=== PATIENT | male | born 1955 | race Caucasian/White ===

== ENCOUNTER 2016-04-17 14:06 | Inpatient (IN) | payer OTHER ==
[~2016-04-17] VITALS: Ht 182.9 cm; Wt 76.4 kg
[2016-04-18] MEDS ORDERED: TRAM50TA PO (09:12)
[2016-04-18] MEDS ORDERED: MULT1TAB85 PO (09:12)
[2016-04-18] MEDS ORDERED: MELO-1 PO (09:12)
[2016-05-05] MEDS ORDERED: METOPROLOL TARTRATE 25 MG TAB PO PRN ×2 (05:45→06:45)
[2016-05-05] MEDS ORDERED: INSULIN HUMAN REGULAR 1,000 UNITS/10 ML VIAL SQ PRN ×2 (05:45→06:45)
[2016-05-05 05:47] VITALS: BP 145/80; PULSE 86; RESP 20; TEMP 98.4; O2SAT 100
[2016-05-05] MEDS ORDERED: SODIUM CHLOR 0.9% 250 ML INJ 250 ML ONE (05:54)
[2016-05-05] MEDS ORDERED: DEXAMETHASONE SOD PHOS 20 MG/5 ML VIAL ONE (05:58)
[2016-05-05] MEDS: POVIDONE IODINE 7.5% SCRUB 118 ML BOTTLE TOP SCH ×2 (06:00→23:37)
[2016-05-05] MEDS: CHLORHEXIDINE GLUCONATE 4% SOLN 120 ML BTL TOP SCH ×2 (06:00→23:37)
[2016-05-05] MEDS ORDERED: VANCOMYCIN 1000 MG/NS 250 ML (for <70 kg) IV SCH ×2 (06:00)
[2016-05-05] MEDS ORDERED: DEXAMETHASONE SOD PHOS 20 MG/5 ML VIAL IV SCH (06:00)
[2016-05-05] MEDS ORDERED: ceFAZolin 2 GM PREMIX 50 ML IV SCH (06:00)
[2016-05-05] MEDS ORDERED: FAMOTIDINE 20 MG/2 ML VIAL ONE (06:39)
[2016-05-05] MEDS ORDERED: fentaNYL CITRATE 250 MCG/5 ML AMP ONE ×2 (06:40→09:14)
[2016-05-05] MEDS ORDERED: MIDAZOLAM HCL 2 MG/2 ML VIAL ONE (06:40)
[2016-05-05] MEDS: SODIUM CHLORID 0.9% 500 ML IV SCH ×2 (06:45→19:57)
[2016-05-05] MEDS: LACTATED RINGER'S 1000 ML IV SCH ×2 (06:45→23:37)
[2016-05-05] MEDS: EXPAREL PERI-ARTICULAR INJECTION (TOTAL VOL. 60 ML) P-ARTICULR SCH ×4 (07:00→07:47)
[2016-05-05] MEDS ORDERED: SODIUM CHLORID 0.9% 500 ML IV SCH (07:00)
[2016-05-05] MEDS ORDERED: LACTATED RINGER'S 1000 ML IV SCH (07:00)
[2016-05-05] MEDS: TRANEXAMIC PERI-ARTICULAR 3,000 MG/NS 100 ML P-ARTICULR SCH ×4 (07:00→07:48)
[2016-05-05] MEDS: TRANEXAMIC ACID INJ 1,146 MG in SODIUM CHLORIDE 0.9% INJ 100 ML IV SCH ×2 (07:00→07:47)
[2016-05-05] MEDS ORDERED: HYDR-3288 PO (07:08)
[2016-05-05] MEDS ORDERED: ENOX40P SQ (07:09)
[2016-05-05] MEDS ORDERED: BISACODYL 10 MG SUPP PR PRN (07:15)
[2016-05-05] MEDS ORDERED: ALUMINUM/MAGNESIUM/SIMETH 30 ML CUP PO PRN (07:15)
[2016-05-05] MEDS ORDERED: MORPHINE SULFATE 4 MG/ML INJ IV PUSH PRN (07:15)
[2016-05-05] MEDS ORDERED: MAGNESIUM HYDROXIDE SUSP 30 ML CUP PO PRN (07:15)
[2016-05-05] MEDS ORDERED: diphenhydrAMINE HCL 50 MG/ML VIAL IV PRN (07:15)
[2016-05-05] MEDS ORDERED: SODIUM CHLORIDE 0.9% FLUSH 5 ML FLUSH IVF PRN (07:15)
[2016-05-05] MEDS ORDERED: ZOLPIDEM TARTRATE 5 MG TAB PO PRN (07:15)
[2016-05-05] MEDS ORDERED: ACETAMINOPHEN/HYDROcodone 325 MG/7.5 MG TAB PO PRN (07:15)
[2016-05-05] MEDS ORDERED: NALOXONE HCL 0.4 MG/ML AMP IV PRN (07:15)
[2016-05-05] MEDS ORDERED: ONDANSETRON HCL 4 MG/2 ML VIAL IVP PRN (07:15)
[2016-05-05] MEDS ORDERED: Post-op Orders (for Pharmacy) MISC XX ONE (07:15)
[2016-05-05] MEDS ORDERED: GENTAMICIN SULFATE 80 MG/2 ML VIAL IRRIGATION ONE (07:46)
[2016-05-05] MEDS: SODIUM CHLORIDE 0.9% FLUSH 5 ML FLUSH IVF SCH ×2 (09:00→20:00)
--- NOTE | 2016-05-05 09:13 | MP ---
cc: ELOY SEQUEIRA M.D. DATE OF SURGERY 04/10/2016 PREOPERATIVE DIAGNOSES Left hip osteoarthritis. Left hip osteonecrosis. POSTOPERATIVE DIAGNOSES Left hip osteoarthritis. Left hip osteonecrosis. PROCEDURE Left total hip arthroplasty. SURGEON Eloy Sequeira MD QUALITY CONTROL TECHNICIAN Eloy Ortiz PA-C ANESTHESIA General. ESTIMATED BLOOD LOSS 200 cc. COMPLICATIONS None. IMPLANTS USED DePuy Corail size 5 Press-Fit standard offset femoral stem, size 54 solid [place] Gription cup, size 36-mm neutral highly cross-linked polyethylene liner, size 36-mm ceramic head, size +1.5 neck. JUSTIFICATION This patient is a 60-year-old male with a history of severe pain involving the left hip. He has severe, disabling pain with standing, walking, ambulation, weightbearing activities, even severe pain at rest; it does interfere with activities of daily living. He has failed greater than three months of nonoperative conservative treatment to include medications, therapy, injections, ambulatory assistive aids, home exercise program, activity modification as well. The patient is not overweight. X-rays of the left hip reveal severe end-stage osteoarthritis with associated osteonecrosis. There is evidence of bone on bone joint space narrowing, subchondral stenosis, subchondral cysts, osteophyte formation and subluxation. The patient was counseled as to the risks, benefits and alternatives to a total hip arthroplasty. The risks discussed include but are not limited to anesthesia, bleeding, infection, damage to nerves, blood vessels, pain, stiffness, leg length discrepancy, fracture dislocation, blood clots, pulmonary embolism and even . The patient's pain is severe. He favored the benefits over the risks and did wish to proceed with surgery. PROCEDURE IN DETAIL Written consent was obtained. The patient was identified by name and taken to the operating room, placed supine on the operating room table. General anesthesia was administered as well as 2 grams of IV Ancef and 1 gram of IV vancomycin. With the patient on the [place] table, the left and right feet were placed in the padded traction boots. All bony prominences and pressure points were well padded. The left hip and left lower extremity were prepped and draped using isopropyl alcohol, Hibiclens solution and Chloraprep solution. After an appropriate time-out was performed, a longitudinal incision was made over the anterolateral aspect of the left hip. Dissection was carried over tensor fascia catalino, beneath the rectus femoris to allow exposure of the anterior hip capsule. A capsulotomy incision was performed. An oscillating saw was used to perform a femoral neck cut. The osteoarthritic femoral head and neck component was removed. A 10-blade scalpel was used to excise the labrum. Sequential reaming began at size 47-mm, was carried through size 54 mm. Subsequently a solid [place] Gription size 54 cup was impacted in approximately 10 degrees of 10 degrees of anteversion and 45 degrees of abduction. This gave purchase and fixation. After insertion of the cup, a screw hole eliminator was placed followed by the neutral liner. The liner was impacted in place and tested for stability. Attention was turned to the femur where the leg was externally rotated, extended to the ground and adducted. The capsule was released off the inner surface of the greater trochanter to allow for elevation and lateralization of the femur. A box-cutting osteotome was used to gain entrance into the intramedullary canal of the femur. This was followed by canal finder and sequential broaching up to size 12. Trial head and neck combinations were evaluated and the final components implanted with the 1.5 neck, 36-mm head. The leg could be reduced with appropriate soft tissue tension. The leg could be externally rotated and extended all the way down to the ground without evidence of anterior instability or impingement. No evidence of dislocation. Fluoroscopic imaging showed appropriate implantation of components. The surgical wound was thoroughly irrigated with sterile saline solution. The fascial layer was closed with #1 Vicryl suture, the subcutaneous layer with 2-0 Vicryl suture. The skin was closed with Dermabond. Sterile dressings were applied. The patient tolerated the procedure well with no intraoperative complications noted. John Paul Ortiz, physician assistant men's soccer coach certified, was present during the procedure to include patient positioning and the procedure itself. The medical necessity of a physician assistant men's soccer coach was indicated in this case due to the complexity of the procedure. He assisted with appropriate manipulation of the leg and also retraction of muscle, tendon and neurovascular structures. He assisted with preparation of bone and implantation of the prosthetic replacement. MD MICHAEL Cash/KYLE /8:51 AM /8:55 AM
[2016-05-05] MEDS ORDERED: *morphine SULFATE 8 MG/ML PERIprocedure ONLY ONE ×3 (09:14→09:41)
--- NOTE | 2016-05-05 09:36 | RADRPT ---
EXAM DATE/TIME: 05/05/2016 07:22 [facility] COMPARISON: No previous studies available for comparison. INDICATIONS : Left anterior hip replacement. MEDICAL HISTORY : None. SURGICAL HISTORY : None. ENCOUNTER: Initial ACUITY: 1 day PAIN SCORE: Non-responsive. LOCATION: Left hip. CONCLUSION: Fluoroscopic images during placement of left hip prosthesis. Kevin Christy MD on May 05, 2016 at 9:34 Board Certified Radiologist. This report was verified electronically.
[2016-05-05] MEDS: SODIUM CHLOR 0.9% 1000 ML INJ 1,000 ML IV SCH ×2 (09:45→18:00)
[2016-05-05] MEDS ORDERED: *HYDROmorphone PF 1 MG VIAL PERIprocedural Use ONLY ONE ×2 (09:55→10:24)
[2016-05-05] MEDS ORDERED: DO NOT ADM ANY ANTICOAGULANT DRUGS XX PRN (10:15)
--- NOTE | 2016-05-05 10:57 | RADRPT ---
EXAM DATE/TIME: 05/05/2016 10:02 [facility] COMPARISON: No previous studies available for comparison. INDICATIONS : Left total hip replacement. MEDICAL HISTORY : None. SURGICAL HISTORY : None. ENCOUNTER: Subsequent ACUITY: 1 day PAIN SCORE: Non-responsive. LOCATION: Left hip. FINDINGS: Examination of the left hip was performed with AP Pelvis. Left hip prosthesis. No hardware loosening or fracture. Postsurgical changes CONCLUSION: Total left hip replacement.. Kevin Christy MD on May 05, 2016 at 10:55 Board Certified Radiologist. This report was verified electronically.
[2016-05-05 12:00] VITALS: BP 133/79; PULSE 101; RESP 16; TEMP 97.2; O2SAT 96
[2016-05-05] MEDS ORDERED: PHENYLEPH/NS 1000 MCG/10 ML SYR IV ONE (12:00)
[2016-05-05] MEDS ORDERED: NEOSTIGMINE 3 MG/3 ML SYR IV ONE (12:00)
[2016-05-05] MEDS ORDERED: ONDANSETRON HCL 4 MG/2 ML VIAL IV PUSH ONE (12:00)
[2016-05-05] MEDS ORDERED: ePHEDrine/NS 25 MG/5 ML SYR IV ONE (12:00)
[2016-05-05] MEDS ORDERED: PROPOFOL 200 MG/20 ML AMP IV ONE (12:00)
[2016-05-05] MEDS ORDERED: LACTATED RINGER'S 1000 ML INJ 1,000 ML IV ONE (12:00)
[2016-05-05] MEDS: ACETAMINOPHEN/HYDROcodone 325 MG/7.5 MG TAB PO PRN ×2 (15:09→20:00)
[2016-05-05] MEDS: MAGNESIUM HYDROXIDE SUSP 30 ML CUP PO SCH ×2 (15:15→20:00)
[2016-05-05 17:21] VITALS: O2SAT 100
[2016-05-05 20:00] VITALS: BP 116/66; PULSE 76; RESP 16; TEMP 99.2; O2SAT 99
[2016-05-05] MEDS ORDERED: SENNOSIDES 8.6 MG TAB PO SCH (21:00)
[2016-05-06] VITALS: BP 128/64; PULSE 69; RESP 16; TEMP 98.3; O2SAT 99
[2016-05-06] MEDS: SODIUM CHLOR 0.9% 1000 ML INJ 1,000 ML IV SCH (03:25)
[2016-05-06] MEDS: ACETAMINOPHEN/HYDROcodone 325 MG/7.5 MG TAB PO PRN ×4 (03:45→15:26)
[2016-05-06 04:00] VITALS: BP 131/69; PULSE 77; RESP 16; TEMP 99.8; O2SAT 98
[2016-05-06 07:23] LABS: HEMATOCRIT 27.7 % (39.0-51.0); MEAN CELL VOLUME 80.8 FL (80.0-100.0); MEAN CORPUSCULAR HEMOGLOBIN 27.6 PG (27.0-34.0); MEAN CORPUSCULAR HGB CONC 34.1 % (32.0-36.0); PLATELET COUNT 199 TH/MM3 (150-450); RED BLOOD COUNT 3.44 MIL/MM3 (4.50-5.90); RED CELL DISTRIBUTION WIDTH 14.2 % (11.6-17.2); REVIEW FLAG FINAL; WHITE BLOOD COUNT 10.4 TH/MM3 (4.0-11.0)
[2016-05-06 08:00] VITALS: BP 122/71; PULSE 72; RESP 20; TEMP 99.4; O2SAT 99
[2016-05-06] MEDS ORDERED: ENOXAPARIN SODIUM 40 MG/0.4 ML SYRINGE SQ SCH (08:15)
--- NOTE | 2016-05-06 08:21 | PD.ORT.PN ---
Subjective Post Op Day #: 1 Subjective Remarks pain in thigh. walked yesterday in PT. Objective Vitals Vital Signs Date Time Temp Pulse Resp B/P Pulse Ox O2 Delivery O2 Flow Rate FiO2 05/06/16 04:00 99.8 77 16 131/69 98 05/06/16 00:00 98.3 69 16 128/64 99 05/05/16 20:00 99.2 76 16 116/66 99 05/05/16 17:21 100 21 05/05/16 12:00 97.2 101 16 133/79 96 05/05/16 10:32 98.5 84 17 142/84 99 Nasal Cannula 3 05/05/16 10:15 80 17 123/85 99 Nasal Cannula 3 05/05/16 10:00 65 16 121/62 99 Nasal Cannula 3 05/05/16 09:45 72 16 138/62 99 Nasal Cannula 3 05/05/16 09:30 79 15 136/75 99 Nasal Cannula 3 05/05/16 09:15 102 15 139/70 99 Nasal Cannula 3 05/05/16 09:08 98.6 120 15 157/86 98 Nasal Cannula 3 I/O 05/05/16 05/05/16 05/05/16 05/06/16 05/06/16 05/06/16 07:00 15:00 23:00 07:00 15:00 23:00 Intake Total 2000 ml 240 ml 240 ml Output Total 1035 ml 350 ml 350 ml Balance 965 ml -110 ml -110 ml Intake Oral 240 ml 240 ml IV Total 400 ml Other 1600 ml Output Urine Total 435 ml 350 ml 350 ml Estimated Blood Loss 600 ml # Bowel Movements 0 0 Result Diagram: 05/06/16 0612 Objective Remarks in bed, nad incision no erythema, no drainage thigh soft neg homans nvi Assessment & Plan Ortho Post Op Day #: 1 Problem List: Assessment and Plan s/p L ISAC wbat daily dressing changes lovenox d/c planning home with [facility] and pt - ok to d/c today if pain controlled. rx in chart f/up dr. martinez 2 weeks Rashaad Ortiz May 06, 2016 08:21
--- NOTE | 2016-05-06 08:24 | HHI.DCPOC ---
Discharge Care Plan Diagnosis: (1) Primary localized osteoarthrosis, pelvic region and thigh Your Health Problems Are: Difficulty with ADL Goals to Promote Your Health * To prevent worsening of your condition and complications * To maintain your health at the optimal level Directions to Meet Your Goals Take your medications as prescribed Follow your dietary instruction Follow activity as directed Keep your appointments as scheduled Take your immunizations and boosters as scheduled If your symptoms worsen call your PCP, if no PCP go to Urgent Care Center or Emergency Room Smoking is Dangerous to Your Health. Avoid second hand smoke Call the 24-hour hour crisis hotline for domestic abuse at Rashaad Ortiz May 06, 2016 08:24
--- NOTE | 2016-05-06 08:25 | HHI.FF ---
Face to Face Verification Diagnosis: (1) Primary localized osteoarthrosis, pelvic region and thigh Physical Therapy Gait training, Safety evaluation, Transfer training, bed to chair Hip: Total hip, Protocol: Left, Progress to weight bearing Left LE Weight Bearing: WB as tolerated Nursing RN: 3 days/week x 2 weeks Nursing: Kvgn teaching, Dressing changes Dressing Changes: Daily dressing change I have seen patient Roderick Nguyen on 05/06/16. My clinical findings support the need for the requested home health care services because: Limited ability to care for self High risk of falls I certify that my clinical findings support that this patient is homebound because: Post-op weakness Unsteady gait/balance Rashaad Ortiz May 06, 2016 08:25
[2016-05-06] MEDS: MAGNESIUM HYDROXIDE SUSP 30 ML CUP PO SCH (08:26)
[2016-05-06] MEDS ORDERED: MISC-163 (08:26)
[2016-05-06] MEDS: SODIUM CHLORIDE 0.9% FLUSH 5 ML FLUSH IVF SCH (08:26)
[2016-05-06] MEDS ORDERED: ASPI1TAB69 PO (08:28)
[2016-05-06 12:00] VITALS: BP 137/70; PULSE 80; RESP 20; TEMP 100.8; O2SAT 99
[2016-05-06] MEDS ORDERED: MULTIVITAMINS/MINERALS THERAPEUTIC TAB PO SCH (21:00)
[2016-05-06] MEDS ORDERED: DOCUSATE SODIUM 100 MG CAP PO SCH (21:00)
--- NOTE | 2016-05-12 08:53 | MD ---
cc: ELOY SEQUEIRA ADMISSION DATE: 05/05/2016 DISCHARGE DATE: 05/06/2016 ADMISSION DIAGNOSIS Severe degenerative osteoarthritis left hip. DISCHARGE DIAGNOSIS Severe degenerative osteoarthritis left hip. HISTORY OF PRESENT ILLNESS Mr. Nguyen is a 60-year-old male who presented to the [facility] for evaluation by Dr. Eloy Sequeira regarding his severe bilateral hip pain left greater than right. The patient states the pain has been bothering him for several years but is currently so intense that it is inhibiting his activities of daily living and his ability to ambulate. The patient states it is constant, severe, aching sensation aggravated by any type of weightbearing or range of motion of his hips. He notes in the past he has tried medications, assistive devices, physical therapy, home exercise program, and even injection without relief of symptoms. He does have x-ray of severe degenerative osteoarthritis of bilateral hips. While in the office the patient was counseled on his diagnosis and treatment options. The risks, benefits, indications of all were discussed. The patient did elect proceed with surgical intervention to include a left total hip arthroplasty. Date of surgery 05/05/2016 left total hip arthroplasty anterior approach. Postop. After surgery the patient admitted to [facility] where he received appropriate medical management, pain control, DVT prophylaxis as well as physical therapy. Discharge. Once being discharged from the hospital the patient is cleared to go home where he will receive home health care and home physical therapy. He is in stable condition. He may weight bear as tolerated with anterior hip precautions. The patient is to receive daily dressing changes and has been instructed on appropriate wound care management. The patient has been provided prescriptions for pain control as well as DVT prophylaxis medication. He has also been provided a follow-up appointment to see Dr. Eloy Sequeira in the office approximately 2 weeks from his date of surgery. The patient and the patient's have asked appropriate questions which have all been answered. The patient has been discharged. Dictated by OLIVER Mack Eloy Sequeira MD JWAutumn/KK /7:54 AM /9:53 PM
== END 2016-05-06 15:40 | disposition home health service (06) | DRG 470 ==
LOC: HSDI 05-05 05:07 → N06A 05-05 10:45
PROVIDERS: ADMIT Orthopaedic Surgery Sports Medicine; ATTEND Orthopaedic Surgery Sports Medicine
PROC: 0SRB04A Replacement of Left Hip Joint with Ceramic on Polyethylene Synthetic Substitute, Uncemented, Open Approach (ICD-10-PCS; principal; 2016-05-05 06:53)
DX: M16.12 Unilateral primary osteoarthritis, left hip (principal); M87.9 Osteonecrosis, unspecified
CPT/HCPCS: 73502; 76000; 85027; 86850; 86900; 86901; 94150; C1776; C9290; J0690; J1100; J1170; J1580; J1650; J2250; J2270; J2370; J2405; J2710; J3010; J3370; J7030; J7050; J7120

== ENCOUNTER → 2016-04-18 | Outpatient (CLI) | payer OTHER ==
[~2016-04-18] MED LIST: ARTH650T6 PO; ASPI1TAB69 PO; ENOX40P SQ; HYDR-3288 PO; LORTA5 PO; MELO-1 PO; MISC-163; MULT-65 PO; MULT1TAB85 PO; TRAM50TA PO; Z.0.NO CURRENT MEDS
[2016-04-18 10:05] LABS: AUTOMATED NEUTROPHIL # 3.6 TH/MM3 (1.8-7.7); BASOPHIL % 0.7 % (0.0-2.0); EOSINOPHIL # 0.1 TH/MM3 (0-0.4); EOSINOPHIL % 2.3 % (0.0-4.0); HEMATOCRIT 39.5 % (39.0-51.0); HEMO FLAGS DIFF FINAL; LYMPH % 30.2 % (9.0-44.0); MEAN CORPUSCULAR HEMOGLOBIN 27.7 PG (27.0-34.0); MEAN CORPUSCULAR HGB CONC 33.8 % (32.0-36.0); MONO % 10.5 % (0.0-8.0); NEUT % 56.3 % (16.0-70.0); PLATELET COUNT 261 TH/MM3 (150-450); RED BLOOD COUNT 4.82 MIL/MM3 (4.50-5.90); RED CELL DISTRIBUTION WIDTH 14.2 % (11.6-17.2); WHITE BLOOD COUNT 6.5 TH/MM3 (4.0-11.0)
[2016-04-18 10:11] LABS: BLOOD, URINE NEG (NEG); COMMENT (UR) CULT NOT INDICATED; CULTURE IF INDICATED CULT NOT INDICATED; GLUCOSE,URINE NEG (NEG); KETONE, URINE NEG (NEG); MUCUS URINE FEW /lpf (OCC); NITRITE,URINE NEG (NEG); PH, URINE 5.5 (5.0-8.5); SQUAMOUS EPITHELIAL CELL URINE <1 /hpf (0-5); URINE COLOR YELLOW (YELLW/STRAW)
[2016-04-18 10:12] LABS: APTT (PATIENT) 26.1 SEC (24.3-30.1); PROTHROMBIN TIME - PATIENT 10.7 SEC (9.8-11.6)
[2016-04-18 10:37] LABS: ALKALINE PHOSPHATASE 137 U/L (45-117); ALT (GPT) 29 U/L (12-78); ANION GAP 5 MEQ/L (5-15); AST (GOT) 22 U/L (15-37); BICARBONATE 33.9 MEQ/L (21.0-32.0); BLOOD UREA NITROGEN 25 MG/DL (7-18); CHLORIDE 100 MEQ/L (98-107); GLOMERULAR FILTRATION RATE 86 ML/MIN (>89); GLUCOSE,FASTING 87 MG/DL (74-99); POTASSIUM 3.8 MEQ/L (3.5-5.1); SODIUM (NA) 139 MEQ/L (136-145); TOTAL BILIRUBIN ADULT 0.5 MG/DL (0.2-1.0)
[2016-04-18 10:39] LABS: WESTERGREN SEDIMENTATION RATE 39 mm/hr (0-20)
--- NOTE | 2016-04-18 15:59 | RADRPT ---
EXAM DATE/TIME: 04/18/2016 13:51 [facility] COMPARISON: No previous studies available for comparison. INDICATIONS : Pre op for hip surgery, evaluate for communicable diseases. MEDICAL HISTORY : None. SURGICAL HISTORY : None. ENCOUNTER: Initial ACUITY: 1 day PAIN SCORE: 0/10 LOCATION: chest FINDINGS: PA and lateral views of the chest demonstrate the lungs to be symmetrically aerated without evidence of mass, infiltrate or effusion. The cardiomediastinal contours are unremarkable. Osseous structure s are intact. CONCLUSION: No acute disease. Mike Haji MD FACR on April 18, 2016 at 15:57 Board Certified Radiologist. This report was verified electronically.
--- NOTE | 2016-04-19 13:15 | EKG ---
Date Performed: 04/18/2016 Time Performed: 09:29:18 PTAGE: 60 years EKG: Sinus rhythm BORDERLINE LEFT AXIS DEVIATION BORDERLINE ECG Compared to prior tracing no significant change PREVIOUS TRACING : 08/16/2003 10.24 DOCTOR: Panchito Finney Interpretating Date/Time 04/19/2016 13:13:28
== END ==
LOC: CPRE 08:52
PROVIDERS: ATTEND Orthopaedic Surgery Sports Medicine
DX: Z01.810 Encounter for preprocedural cardiovascular examination (principal); Z01.811 Encounter for preprocedural respiratory examination; Z01.812 Encounter for preprocedural laboratory examination; Z01.818 Encounter for other preprocedural examination; Z79.01 Long term (current) use of anticoagulants; Z96.60 Presence of unspecified orthopedic joint implant; M16.12 Unilateral primary osteoarthritis, left hip; M25.50 Pain in unspecified joint
CPT/HCPCS: 36415; 71020; 80053; 81001; 85025; 85610; 85652; 85730; 93005

== ENCOUNTER 2016-08-28 14:02 | Inpatient (IN) | payer OTHER ==
[~2016-08-28] VITALS: Ht 167.6 cm; Wt 79.2 kg
[~2016-08-28 14:02] MED LIST changes: -ARTH650T6 PO; -ASPI1TAB69 PO; -ENOX40P SQ; -HYDR-3288 PO; -LORTA5 PO; -MELO-1 PO; -MISC-163; -MULT-65 PO; -MULT1TAB85 PO; -Z.0.NO CURRENT MEDS
[2016-08-29] MEDS ORDERED: MULT-65 PO (10:39)
[2016-08-29] MEDS ORDERED: ARTH650T6 PO (10:39)
[2016-09-15] MEDS ORDERED: SODIUM CHLORIDE 0.9% IV SCH (07:15)
[2016-09-15] MEDS ORDERED: METOPROLOL TARTRATE 25 MG TAB PO PRN (07:15)
[2016-09-15] MEDS ORDERED: EXPAREL PERI-ARTICULAR INJECTION (TOTAL VOL. 60 ML) P-ARTICULR SCH ×2 (07:15)
[2016-09-15] MEDS ORDERED: TRANEXAMIC PERI-ARTICULAR 3,000 MG/NS 100 ML P-ARTICULR SCH ×2 (07:15)
[2016-09-15] MEDS ORDERED: VANCOMYCIN 1000 MG/NS 250 ML (for <70 kg) IV SCH ×2 (07:15)
[2016-09-15] MEDS ORDERED: ceFAZolin 2 GM PREMIX 50 ML IV SCH (07:15)
[2016-09-15] MEDS ORDERED: CHLORHEXIDINE GLUCONATE 2 % 1 PACK (2 CLOTHS) TOPICAL PRN (07:15)
[2016-09-15] MEDS ORDERED: INSULIN HUMAN REGULAR 1,000 UNITS/10 ML VIAL SQ PRN (07:15)
[2016-09-15] MEDS ORDERED: POVIDONE IODINE 7.5% SCRUB 118 ML BOTTLE TOPICAL SCH (07:15)
[2016-09-15] MEDS ORDERED: TRANEXAMIC ACID IV SCH (07:15)
[2016-09-15] MEDS ORDERED: SODIUM CHLORID 0.9% 500 ML IV PRN (07:15)
[2016-09-15] MEDS ORDERED: CHLORHEXIDINE GLUCONATE 4% SOLN 120 ML BTL TOPICAL SCH (07:15)
[2016-09-15] MEDS ORDERED: DEXAMETHASONE SOD PHOS 20 MG/5 ML VIAL IV PRN (07:15)
[2016-09-15] MEDS ORDERED: POVIDONE IODINE 5% (ANTISEPSIS KIT) 4 APPLICATIONS EACH NARE PRN (07:15)
[2016-09-15] MEDS ORDERED: LACTATED RINGER'S 1000 ML IV PRN (07:15)
[2016-09-15 07:47] VITALS: BP 133/81; PULSE 75; RESP 20; TEMP 98.1; O2SAT 98
[2016-09-15] MEDS ORDERED: GENTAMICIN SULFATE 80 MG/2 ML VIAL ONE (08:03)
[2016-09-15] MEDS ORDERED: PROPOFOL 200 MG/20 ML AMP IV ONE (08:05)
[2016-09-15] MEDS ORDERED: ePHEDrine/NS 25 MG/5 ML SYR IV ONE (08:06)
[2016-09-15] MEDS ORDERED: ONDANSETRON HCL 4 MG/2 ML VIAL IV PUSH ONE (08:06)
[2016-09-15] MEDS ORDERED: NEOSTIGMINE METHYLSULFATE 10 MG/10 ML VIAL IV PUSH ONE (08:06)
[2016-09-15] MEDS ORDERED: LACTATED RINGER'S 1000 ML INJ 1,000 ML IV ONE (08:08)
[2016-09-15] MEDS ORDERED: HYDR-3288 PO (08:27)
[2016-09-15] MEDS ORDERED: ASPI81CH37 CHEW (08:28)
[2016-09-15] MEDS ORDERED: ENOX40P SQ (08:28)
[2016-09-15] MEDS ORDERED: ONDANSETRON HCL 4 MG/2 ML VIAL IVP PRN (08:30)
[2016-09-15] MEDS ORDERED: SODIUM CHLORIDE 0.9% FLUSH 5 ML FLUSH IVF PRN (08:30)
[2016-09-15] MEDS ORDERED: Post-op Orders (for Pharmacy) MISC XX ONE (08:30)
[2016-09-15] MEDS ORDERED: BISACODYL 10 MG SUPP RECTAL PRN (08:30)
[2016-09-15] MEDS ORDERED: ACETAMINOPHEN/HYDROcodone 325 MG/10 MG TAB PO PRN (08:30)
[2016-09-15] MEDS ORDERED: MORPHINE SULFATE 4 MG/ML INJ IV PUSH PRN (08:30)
[2016-09-15] MEDS ORDERED: NALOXONE HCL 0.4 MG/ML AMP IV PRN (08:30)
[2016-09-15] MEDS ORDERED: diphenhydrAMINE HCL 50 MG/ML VIAL IV PRN (08:30)
[2016-09-15] MEDS ORDERED: ACETAMINOPHEN 1000 MG/100 ML VIAL IV ONE (08:48)
[2016-09-15] MEDS ORDERED: MIDAZOLAM HCL 2 MG/2 ML VIAL ONE (08:48)
[2016-09-15] MEDS ORDERED: DO NOT ADM ANY ANTICOAGULANT DRUGS PRN (11:53)
[2016-09-15] MEDS ORDERED: *morphine SULFATE 8 MG/ML PERIprocedure ONLY ONE ×2 (11:58→12:20)
[2016-09-15] MEDS ORDERED: fentaNYL CITRATE 250 MCG/5 ML AMP ONE (12:00)
[2016-09-15] MEDS: SODIUM CHLORIDE 0.9% FLUSH 5 ML FLUSH IVF SCH ×2 (12:15→21:00)
[2016-09-15] MEDS: SODIUM CHLOR 0.9% 1000 ML INJ 1,000 ML IV SCH ×2 (12:15→18:27)
--- NOTE | 2016-09-15 12:20 | MP ---
cc: ELOY SEQUEIRA DATE OF SURGERY: 09/15/2016 PREOPERATIVE DIAGNOSIS Right hip osteoarthritis. POSTOPERATIVE DIAGNOSES Right hip osteoarthritis. PROCEDURE Right total hip arthroplasty. SURGEON Dr. Eloy Sequeira. INSULATION BOARD BACK TENDER Eloy Ortiz PA-C. ANESTHESIA General. ESTIMATED BLOOD LOSS Less than 200 cc. COMPLICATIONS None. IMPLANTS USED DePuy Corail, size 10 Press-Fit standard offset femoral stem, size 54 solid [place] Gription cup, size 36 mm ceramic head, +8.5 neck. JUSTIFICATION The patient is a 61-year-old male with a history of severe end-stage osteoarthritis involving the right hip joint. He has severe disabling pain with standing, walking, ambulation and weightbearing activities, even severe pain at rest. It does interfere with activities of daily living. He has failed greater than three months of nonoperative conservative treatment to include medication, therapy, injections, ambulatory assisted aids, home exercise program and activity modification. The patient is not overweight. X-rays of the right hip reveal severe end-stage osteoarthritis with [id number] joint space narrowing, subchondral sclerosis, subchondral cysts, osteophyte formation and subluxation. The patient was counseled as to the risks, benefits and alternatives to a total hip arthroplasty. The risks were discussed which include but not limited to anesthesia, bleeding, infection, damage to nerves and blood vessels, pain and stiffness, leg length discrepancy, dislocation, blood clots, pulmonary embolism and even . The patient's pain is severe. He favored the benefits over the risks and did wish to proceed with surgery. PROCEDURE IN DETAIL Written consent was obtained. The patient was identified, taken to the operating room and placed supine on the operating table. General anesthesia was administered as well as two grams of IV Ancef and one gram of IV vancomycin. The right and left feet were placed in padded traction boots. All bony prominences and pressure points were well-padded. The right hip and right lower extremity were prepped and draped using isopropyl alcohol, Hibiclens solution and ChloraPrep solution. After a timeout was performed a longitudinal incision was made over the anterolateral aspect of the right hip. The fascial layer was incised. Dissection was carried over the tensor fascia catalino beneath the rectus femoris to allow exposure of the anterior capsule. A capsulotomy incision was performed. An oscillating saw was used to perform a femoral neck cut. The osteophytic femoral head and neck component was removed. A 10 blade scalpel was used to excise the labrum. Sequential reaming began at size 47 and was carried to size 54. Subsequently, a solid [place] Gription cup was implanted in approximately 45 degrees of abduction and 10 degrees of anteversion. There was good purchase and fixation after insertion of the Press-Fit size 54 cup. A screw hole eliminator was placed followed by a neutral liner. The liner was impacted in place and tested for stability. Attention was turned to the femur where the leg was externally rotated, adducted and extended. The capsule was released off the inner surface of the greater trochanter to allow for elevation and lateralization of the femur. A box cutting osteotome was used to gain entrance into the intramedullary canal of the femur. This was followed by a canal finder and sequential broaching up to size 10. A calcar planer was used to plane the calcar. Trial head and neck combinations were evaluated and final components were implanted with the current implants. Fluoroscopic imaging showed appropriate alignment of the implants. The leg could achieve 70 degrees of external rotation and extension all the way down to the ground without evidence of anterior instability or impingement. The surgical wound was thoroughly irrigated with sterile saline pulse lavage antibiotic-impregnated solution. The fascia layer was closed with #1 Vicryl suture, subcutaneous tissue layer with 2-0 Vicryl suture and skin was closed with Dermabond. Sterile dressing was applied. The patient tolerated the procedure well with no intraoperative complications noted. Eloy Ortiz, physician tourist information assistant certified, was present during the entire procedure to include patient positioning and the procedure itself. The medical necessity of a physician tourist information assistant was indicated in this case due to the complexity of the procedure. He assisted with appropriate manipulation of the leg and also traction of muscle, tendon, bone and neurovascular structures. He assisted with preparation and also implantation of the prosthetic replacement. MD MICHAEL Cash/ISABELL /11:41 AM /12:07 PM
--- NOTE | 2016-09-15 12:36 | RADRPT ---
EXAM DATE/TIME: 09/15/2016 12:00 [facility] COMPARISON: No previous studies available for comparison. INDICATIONS : Post op right total hip replacement. MEDICAL HISTORY : None. SURGICAL HISTORY : Left total hip. ENCOUNTER: Initial ACUITY: 1 day PAIN SCORE: 8/10 LOCATION: Right hip. FINDINGS: Total hip arthroplasty is in place bilaterally. The femoral and acetabular components appear intact. There are no signs of loosening or fracture. CONCLUSION: Intact bilateral total hip prosthesis for technique. KCarole Ramirez MD on September 15, 2016 at 12:33 Board Certified Radiologist. This report was verified electronically.
--- NOTE | 2016-09-15 13:06 | HHI.DCPOC ---
Discharge Care Plan Diagnosis: (1) Primary localized osteoarthrosis, pelvic region and thigh Your Health Problems Are: Difficulty with ADL Goals to Promote Your Health * To prevent worsening of your condition and complications * To maintain your health at the optimal level Directions to Meet Your Goals Take your medications as prescribed Follow your dietary instruction Follow activity as directed Keep your appointments as scheduled Take your immunizations and boosters as scheduled If your symptoms worsen call your PCP, if no PCP go to Urgent Care Center or Emergency Room Smoking is Dangerous to Your Health. Avoid second hand smoke Call the 24-hour hour crisis hotline for domestic abuse at Rashaad Ortiz Sep 15, 2016 13:06
--- NOTE | 2016-09-15 13:07 | HHI.FF ---
Face to Face Verification Diagnosis: (1) Primary localized osteoarthrosis, pelvic region and thigh Physical Therapy Gait training, Safety evaluation, Transfer training, bed to chair Hip: Total hip, Protocol: Right Right LE Weight Bearing: WB as tolerated Nursing RN: 3 days/week x 2 weeks Nursing: Kvng teaching, Dressing changes Dressing Changes: Daily dressing change I have seen patient Roderick Nguyen on 09/15/16. My clinical findings support the need for the requested home health care services because: Limited ability to care for self High risk of falls I certify that my clinical findings support that this patient is homebound because: Post-op weakness Unsteady gait/balance Rashaad Ortiz Sep 15, 2016 13:07
--- NOTE | 2016-09-15 14:11 | PD.CONS ---
HPI Service [facility] Hospitalists Consult Requested By Primary Care Physician Amarjit Castaneda MD Diagnoses: History of Present Illness Pt is 61 yo with recent left lele. Admitted now for right lele. Doing well other than post op pain. Just received iv morphine 10mg. No n/v or confusion. no cp or sob. Review of Systems Other right hip pain Past Family Social History Past Medical History OA left lele Reported Medications Arthritis Pain Reliever ER 8 HR (Acetaminophen) 650 Mg Tab 1,300 Mg PO Q8HR PRN Multi-Vitamin Daily (Multiple Vitamin) 1 Tab Tab 1 Tab PO DAILY Tramadol (Tramadol HCl) 50 Mg Tab 50 Mg PO Q4H PRN Allergies: Coded Allergies: No Known Allergies (Unverified , 09/15/16) Family History nc Social History no etoh/tob Physical Exam Vital Signs oriented heart reg lung cta abd s/nt ext o edema laughlin Vital Signs Date Time Temp Pulse Resp B/P Pulse Ox O2 Delivery O2 Flow Rate FiO2 09/15/16 13:15 98.4 81 15 141/67 100 Nasal Cannula 2 09/15/16 13:00 88 16 151/80 100 Nasal Cannula 2 09/15/16 12:45 84 12 144/76 100 Nasal Cannula 2 09/15/16 12:30 75 16 125/60 99 Nasal Cannula 2 09/15/16 12:15 80 14 153/79 99 Nasal Cannula 2 09/15/16 12:00 85 12 138/80 99 Nasal Cannula 2 09/15/16 11:56 98.0 87 16 150/77 99 Nasal Cannula 2 09/15/16 07:47 98.1 75 20 133/81 98 Laboratory Laboratory Tests Test 09/15/16 08:05 Blood Type O POSITIVE Antibody Screen NEGATIVE Assessment and Plan Problem List: (1) Osteoarthritis Status: Acute Plan: Pt admitted for right lele for OA. recent Left lele pain control with po norco lovenox for dvt prophylaxis PT consult d/c qian in AM prn laxatives IS medically stable. Derek Barrett MD Sep 15, 2016 14:11
[2016-09-15 14:40] VITALS: BP 140/79; PULSE 101; RESP 16; TEMP 97.1; O2SAT 99
[2016-09-15] MEDS: ceFAZolin 2 GM PREMIX 50 ML IV SCH ×2 (14:54→21:48)
[2016-09-15] MEDS: ACETAMINOPHEN/HYDROcodone 325 MG/10 MG TAB PO PRN ×2 (14:55→21:48)
--- NOTE | 2016-09-15 15:08 | RADRPT ---
EXAM DATE/TIME: 09/15/2016 09:58 [facility] COMPARISON: No previous studies available for comparison. INDICATIONS : Right anterior hip replacement. MEDICAL HISTORY : Osteoarthritis. SURGICAL HISTORY : Left anterior hip replacement. ENCOUNTER: Initial ACUITY: 1 day PAIN SCORE: Non-responsive. LOCATION: Right anterior hip. FINDINGS: Total hip arthroplasty is in place. The femoral and acetabular components appear intact. There are no signs of loosening or fracture. CONCLUSION: Intact total hip prosthesis for technique. KCarole Ramirez MD on September 15, 2016 at 15:06 Board Certified Radiologist. This report was verified electronically.
[2016-09-15 19:30] VITALS: BP 118/80; PULSE 88; RESP 17; TEMP 97.6; O2SAT 97
[2016-09-15] MEDS ORDERED: ZOLPIDEM TARTRATE 5 MG TAB PO PRN (21:00)
[2016-09-15 23:45] VITALS: BP 116/69; PULSE 80; RESP 17; TEMP 97.9; O2SAT 96
[2016-09-16] MEDS: ACETAMINOPHEN/HYDROcodone 325 MG/10 MG TAB PO PRN ×2 (04:16→10:20)
[2016-09-16] MEDS: ceFAZolin 2 GM PREMIX 50 ML IV SCH (04:16)
[2016-09-16 04:30] VITALS: BP 123/72; PULSE 68; RESP 16; TEMP 98.2; O2SAT 96
[2016-09-16] MEDS: SODIUM CHLOR 0.9% 1000 ML INJ 1,000 ML IV SCH (05:00)
[2016-09-16 06:40] LABS: MEAN CELL VOLUME 75.4 FL (80.0-100.0); MEAN CORPUSCULAR HEMOGLOBIN 24.5 PG (27.0-34.0); MEAN CORPUSCULAR HGB CONC 32.5 % (32.0-36.0); PLATELET COUNT 238 TH/MM3 (150-450); RED BLOOD COUNT 4.11 MIL/MM3 (4.50-5.90); RED CELL DISTRIBUTION WIDTH 15.7 % (11.6-17.2); REVIEW FLAG FINAL; WHITE BLOOD COUNT 13.9 TH/MM3 (4.0-11.0)
[2016-09-16 06:48] LABS: BICARBONATE 32.4 MEQ/L (21.0-32.0); POTASSIUM 4.5 MEQ/L (3.5-5.1)
[2016-09-16 08:00] VITALS: BP 115/63; PULSE 73; RESP 18; TEMP 98.2; O2SAT 97
[2016-09-16] MEDS: SODIUM CHLORIDE 0.9% FLUSH 5 ML FLUSH IVF SCH (09:00)
--- NOTE | 2016-09-16 09:17 | PD.ORT.PN ---
Subjective Post Op Day #: 1 Subjective Remarks doing well. ready to go home. Objective Vitals Vital Signs Date Time Temp Pulse Resp B/P Pulse Ox O2 Delivery O2 Flow Rate FiO2 09/16/16 08:00 98.2 73 18 115/63 97 09/16/16 04:30 98.2 68 16 123/72 96 09/15/16 23:45 97.9 80 17 116/69 96 09/15/16 20:14 21 09/15/16 19:30 97.6 88 17 118/80 97 09/15/16 19:04 Room Air 09/15/16 14:40 97.1 101 16 140/79 99 09/15/16 13:15 98.4 81 15 141/67 100 Nasal Cannula 2 09/15/16 13:00 88 16 151/80 100 Nasal Cannula 2 09/15/16 12:45 84 12 144/76 100 Nasal Cannula 2 09/15/16 12:30 75 16 125/60 99 Nasal Cannula 2 09/15/16 12:15 80 14 153/79 99 Nasal Cannula 2 09/15/16 12:00 85 12 138/80 99 Nasal Cannula 2 09/15/16 11:56 98.0 87 16 150/77 99 Nasal Cannula 2 I/O 09/15/16 09/15/16 09/15/16 09/16/16 09/16/16 09/16/16 07:00 15:00 23:00 07:00 15:00 23:00 Intake Total 1100 ml 960 ml 480 ml Output Total 850 ml 925 ml 600 ml Balance 250 ml 35 ml -120 ml Intake Oral 960 ml 480 ml Other 1100 ml Output Urine Total 400 ml 925 ml 600 ml Estimated Blood Loss 450 ml # Voids 2 # Bowel Movements 0 0 Result Diagram: 09/16/16 0502 09/16/16 0502 Objective Remarks in bed, nad incision no erythema, no drainage thigh soft neg homans nvi Assessment & Plan Ortho Post Op Day #: 1 Problem List: Assessment and Plan s/p R ISAC wbat daily dressing changes lovenox d/c planning home, will start OP PT next week f/up dr. martinez 2 weeks Rashaad Ortiz Sep 16, 2016 09:17
[2016-09-16] MEDS ORDERED: ENOXAPARIN SODIUM 40 MG/0.4 ML SYRINGE SQ SCH (11:00)
[2016-09-16] MEDS ORDERED: MULTIVITAMINS/MINERALS THERAPEUTIC TAB PO SCH (21:00)
[2016-09-16] MEDS ORDERED: DOCUSATE SODIUM 100 MG CAP PO SCH (21:00)
== END 2016-09-16 10:48 | disposition home or self-care (01) | DRG 470 ==
LOC: HSDI 09-15 06:51 → N06B 09-15 13:38
PROVIDERS: ADMIT Orthopaedic Surgery Sports Medicine; ATTEND Orthopaedic Surgery Sports Medicine
PROC: 0SR904A Replacement of Right Hip Joint with Ceramic on Polyethylene Synthetic Substitute, Uncemented, Open Approach (ICD-10-PCS; principal; 2016-09-15 09:25)
DX: M16.11 Unilateral primary osteoarthritis, right hip (principal); Z96.642 Presence of left artificial hip joint
CPT/HCPCS: 73502; 76000; 80048; 85027; 86850; 86900; 86901; C1776; C9290; J0131; J0690; J1100; J1580; J1650; J2250; J2270; J2405; J2710; J3010; J3370; J7030; J7050; J7120

== ENCOUNTER → 2016-08-29 | Outpatient (CLI) | payer OTHER ==
[~2016-08-29] MED LIST changes: +ARTH650T6 PO; +ASPI1TAB69 PO; +ENOX40P SQ; +HYDR-3288 PO; +MISC-163; +MULT-65 PO; +MULT1TAB85 PO
[2016-08-29 10:31] LABS: BASOPHIL % 0.5 % (0.0-2.0); EOSINOPHIL # 0.3 TH/MM3 (0-0.4); EOSINOPHIL % 5.3 % (0.0-4.0); HEMATOCRIT 40.5 % (39.0-51.0); HEMO FLAGS DIFF FINAL; LYMPH % 31.7 % (9.0-44.0); LYMPHOCYTE # 1.8 TH/MM3 (1.0-4.8); MEAN CELL VOLUME 75.7 FL (80.0-100.0); MEAN CORPUSCULAR HEMOGLOBIN 24.6 PG (27.0-34.0); MEAN CORPUSCULAR HGB CONC 32.5 % (32.0-36.0); MONO % 8.9 % (0.0-8.0); NEUT % 53.6 % (16.0-70.0); PLATELET COUNT 276 TH/MM3 (150-450); RED BLOOD COUNT 5.36 MIL/MM3 (4.50-5.90); RED CELL DISTRIBUTION WIDTH 15.4 % (11.6-17.2); WHITE BLOOD COUNT 5.6 TH/MM3 (4.0-11.0)
[2016-08-29 10:42] LABS: APTT (PATIENT) 26.4 SEC (24.3-30.1); PROTHROMBIN TIME - PATIENT 10.8 SEC (9.8-11.6)
[2016-08-29 10:51] LABS: WESTERGREN SEDIMENTATION RATE 21 mm/hr (0-20)
[2016-08-29 11:05] LABS: ANION GAP 4 MEQ/L (5-15); AST (GOT) 23 U/L (15-37); BICARBONATE 34.2 MEQ/L (21.0-32.0); BLOOD UREA NITROGEN 20 MG/DL (7-18); CHLORIDE 104 MEQ/L (98-107); GLOMERULAR FILTRATION RATE 91 ML/MIN (>89); SODIUM (NA) 142 MEQ/L (136-145)
[2016-08-29 11:11] LABS: ALKALINE PHOSPHATASE 127 U/L (45-117); ALT (GPT) 26 U/L (12-78); GLUCOSE,FASTING 94 MG/DL (74-99); TOTAL BILIRUBIN ADULT 0.2 MG/DL (0.2-1.0)
--- NOTE | 2016-08-29 11:36 | RADRPT ---
EXAM DATE/TIME: 08/29/2016 10:55 [facility] COMPARISON: CHEST PA & LAT, April 18, 2016, 13:51. INDICATIONS : Evaluate for pneumonia, pneumothorax or communicable disease. Pre op hip replacement. MEDICAL HISTORY : None. SURGICAL HISTORY : None. ENCOUNTER: Initial ACUITY: 1 day PAIN SCORE: 0/10 LOCATION: Bilateral chest FINDINGS: PA and lateral views of the chest demonstrate the lungs to be symmetrically aerated without evidence of mass, infiltrate or effusion. The cardiomediastinal contours are unremarkable. Osseous structure s are intact. CONCLUSION: No acute disease. Noe Barry MD on August 29, 2016 at 11:33 Board Certified Radiologist. This report was verified electronically.
[2016-08-29 12:02] LABS: BACTERIA, URINE RARE /hpf; BLOOD, URINE NEG (NEG); CALCIUM OXALATE CRYSTALS,URINE OCC /hpf; COMMENT (UR) CULT NOT INDICATED; CULTURE IF INDICATED CULT NOT INDICATED; GLUCOSE,URINE NEG (NEG); KETONE, URINE NEG (NEG); MUCUS URINE FEW /lpf (OCC); NITRITE,URINE NEG (NEG); PH, URINE 5.5 (5.0-8.5); URINE COLOR YELLOW (YELLW/STRAW)
--- NOTE | 2016-08-29 16:47 | EKG ---
Date Performed: 08/29/2016 Time Performed: 10:31:04 PTAGE: 61 years EKG: Sinus rhythm BORDERLINE LEFT AXIS DEVIATION MINIMAL ST DEPRESSION BORDERLINE ECG PREVIOUS TRACING : 04/18/2016 09.29 Compared to prior tracing no significant change DOCTOR: Cynthia Ferreira Interpretating Date/Time 08/29/2016 16:45:42
== END ==
LOC: CPRE 10:00
PROVIDERS: ATTEND Orthopaedic Surgery Sports Medicine
DX: Z01.812 Encounter for preprocedural laboratory examination (principal); Z01.810 Encounter for preprocedural cardiovascular examination; Z01.811 Encounter for preprocedural respiratory examination; M16.11 Unilateral primary osteoarthritis, right hip; M25.50 Pain in unspecified joint; R94.31 Abnormal electrocardiogram [ECG] [EKG]; Z79.01 Long term (current) use of anticoagulants; Z96.60 Presence of unspecified orthopedic joint implant
CPT/HCPCS: 36415; 71020; 80053; 81001; 85025; 85610; 85652; 85730; 93005